=== PATIENT | female | born 1980 | race Caucasian/White ===

== ENCOUNTER → 2017-05-08 | Outpatient (CLI) | payer MEDICARE, OTHER ==
[~2017-05-08] MED LIST: OMEP20CA5 PO; PREG50CA PO
--- NOTE | 2017-05-08 15:27 | RAD ---
3 views right shoulder 05/08/2017 2:00 AM Indication: ENTIRE RIGHT SHOULDER PAIN, TINGLING DOWN ARM, LOSS OF PATTERNATOR. Comparison: None Findings: There is no fracture or dislocation identified. Articular surfaces are uninterrupted. Soft tissues are unremarkable. Impression: No radiographic evidence of acute osseous abnormality
== END | disposition home or self-care (01) ==
LOC: DXRADRC 15:06
PROVIDERS: ATTEND Family Medicine
DX: M25.511 Pain in right shoulder (principal); R20.2 Paresthesia of skin
CPT/HCPCS: 73030

== ENCOUNTER → 2020-11-28 | Outpatient (CLI) | payer MEDICARE, OTHER ==
--- NOTE | 2020-11-28 13:07 | RAD ---
DATE: November 28, 2020 EXAM: DIGITAL SCREEN BILAT W/CAD HISTORY: Screening study. COMPARISON: None. Baseline study. This study was interpreted with the benefit of Computerized Aided Detection (CAD). FINDINGS: Breast Density: HETERO The breast parenchyma is heterogenously dense, which could reduce sensitivity of mammography. Breast parenchyma level C.. Benign-appearing calcifications are seen anteriorly on the right side. There are no dominant suspicious masses, suspicious pleomorphic microcalcifications or evidence of architectural distortion. IMPRESSION: No mammographic indicators for malignancy. BI-RADS CATEGORY: 2 BENIGN FINDING RECOMMENDED FOLLOW-UP: 12M 12 MONTH FOLLOW-UP PQRS compliance statement: Patient information was entered into a reminder system with a target due date November 29, 2021 for the next mammogram. Mammography is a sensitive method for finding small breast cancers, but it does not detect them all and is not a substitute for careful clinical examination. A negative mammogram does not negate a clinically suspicious finding and should not result in delay in biopsying a clinically suspicious abnormality. "Our facility is accredited by the [employer] Mammography Program." The patient's breast density may affect the ability of mammography to detect breast cancer. There are 4 categories of breast density, A, B, C and D. Breast density A means that most of the breast tissue is replaced with adipose tissue and therefore is not dense. Breast density B means that the breast tissue is mildly dense and scattered. Breast density C means that the breast tissue is heterogeneously dense. Breast density D means that the breast tissue is very dense. Breast densities especially C and D may decrease the sensitivity of mammography to detect breast cancer. Therefore, the patient may benefit from 3-D breast mammography (3D breast tomography) as a part of their screening mammogram. Insurance may or may not pay for this additional imaging. The patient's breast density based on today's mammogram is category C.
--- NOTE | 2020-11-28 13:29 | RAD ---
EXAM: DUAL ENERGY X-RAY ABSORPTIOMETRY (DEXA). HISTORY: Osteoporosis screening. FINDINGS: The lowest measured T-score is -1.9 in the right hip, based on a bone mineral density of 0. 71 g/cm^2. Refer to the worksheets for full detail. No comparison examinations are available. IMPRESSION: 1. Low bone mass. Bone mineral density yields a T-score between -1.0 and -2.5. Fracture risk is incre ased. 2. FRAX report: Not calculated. METHODOLOGY: Dual energy x-ray absorptiometry was performed to measure bone mineral density. The foll owing analysis is based on the 2019 Official Positions of the International Society for Clinical Dens itometry: Measurements of the hips and the average of L1-L4 are preferred. When the spine and/or hip cannot be feasibly measured or interpreted, or in the setting of hyperparathyroidism, distal radial bone minera l density may be measured. The lumbar spine T-score is based on the average bone mineral density of L1-L4. In the setting of art ifact or anatomic abnormality, some lumbar levels may be excluded, and the remaining levels used for calculation. A single lumbar level is not used for diagnosis, and if only a single level is available for assessment, another anatomic site will be used to assign a diagnosis. The hip T-score is based on the bone mineral density measurement of the femoral neck or total proxima l femur of either side, whichever is lowest. Bilateral mean values are not used for diagnosis. The forearm T-score is derived from 33% of the distal radius of the nondominant forearm. Electronically signed by: Kathleen Roth MD (11/28/2020 1:26 PM) [facility]
== END ==
LOC: MAMMO 10:40
PROVIDERS: ATTEND Family Medicine
DX: Z12.31 Encounter for screening mammogram for malignant neoplasm of breast (principal); M81.8 Other osteoporosis without current pathological fracture; M89.9 Disorder of bone, unspecified
CPT/HCPCS: 77067; 77080

== ENCOUNTER 2021-08-12 09:51 | Emergency (ER) | payer OTHER ==
[~2021-08-12] VITALS: Ht 160 cm; Wt 42.0 kg
[2021-08-12 09:51] VITALS: BP 100/66
[2021-08-12] MEDS ORDERED: IBUPROFEN 600 MG TABLET. PO ONE ×2 (10:15→10:19)
--- NOTE | 2021-08-12 10:15 | PHYS DOC ---
Past History Alcohol Use: None (BRANDT LARRY APRN) General Adult EDM: Chief Complaint: FATIGUE HPI: HPI: Patient is a 40-year-old female who presents with body aches, chills, fever and fatigue. Patient states that symptoms started 4 days ago. Highest temperature at home was 102. Patient denies taking anything at home to treat symptoms. Denies shortness of breath, chest pain, cough. Patient is not vaccinated for COVID-19. Denies medical history. (BRANDT LARRY APRN) Review of Systems: Review of Systems: ROS At least 10 ROS systems have been reviewed and are negative except as documented in the HPI. General: Negative except as outlined in HPI above. Skin: Negative except as outlined in HPI above. HEENT: Negative except as outlined in HPI above. Neck: Negative except as outlined in HPI above. Respiratory: Negative except as outlined in HPI above.. Cardiovascular: Negative except as outlined in HPI above. Abdomen: Negative except as outlined in HPI above. : Negative except as outlined in HPI above. Back/MSK: Negative except as outlined in HPI above. Neuro: Negative except as outlined in HPI above. Psych: Negative except as outlined in HPI above. (BRANDT LARRY APRN) Allergies: Allergies: Allergies Coded Allergies Type Severity Reaction Last Updated Verified Penicillins Allergy Unknown 06/23/15 Yes (BRANDT LARRY APRN) Physical Exam: PE: Constitutional: Well developed, well nourished, no acute distress, non-toxic appearance. [] HENT: Normocephalic, atraumatic, bilateral external ears normal, oropharynx moist, no oral exudates, nose normal. [] Eyes: PERRLA, EOMI, conjunctiva normal, no discharge. [] Neck: Normal range of motion, no tenderness, supple, no stridor. [] Cardiovascular:Heart rate regular rhythm, no murmur [] Lungs & Thorax: Bilateral breath sounds clear to auscultation [] Abdomen: Bowel sounds normal, soft, no tenderness, no masses, no pulsatile masses. [] Skin: Warm, dry, no erythema, no rash. [] Back: No tenderness, no CVA tenderness. [] Extremities: No tenderness, no cyanosis, no clubbing, ROM intact, no edema. [] Neurologic: Alert and oriented X 3, normal motor function, normal sensory function, no focal deficits noted. [] Psychologic: Affect normal, judgement normal, mood normal. [] (BRANDT LARRY APRN) Current Patient Data: Vital Signs: Vital Signs Date Time Temp Pulse Resp B/P (MAP) Pulse Ox O2 Delivery O2 Flow Rate FiO2 08/12/21 09:51 99.2 103 16 100/66 (77) 100 Room Air (BRANDT LARRY APRN) EKG: EKG: [] (BRANDT LARRY APRN) Radiology/Procedures: Radiology/Procedures: [] (BRANDT LARRY APRN) Heart Score: C/O Chest Pain: No Risk Factors: Risk Factors: DM, Current or recent (<one month) smoker, HTN, HLP, family history of CAD, obesity. Risk Scores: Score 0 - 3: 2.5% MACE over next 6 weeks - Discharge Home Score 4 - 6: 20.3% MACE over next 6 weeks - Admit for Clinical Observation Score 7 - 10: 72.7% MACE over next 6 weeks - Early Invasive Strategies (BRANDT LARRY APRN) Course & Med Decision Making: Course & Med Decision Making Pertinent Labs and Imaging studies reviewed. (See chart for details) [] 40-year-old female presents with body aches, chills and fever for 4 days. Treatment in the ER consisted of rapid COVID and influenza. Patient given 600 mg of Motrin to treat symptoms. Influenza was positive. Discussed results with patient. Advised patient to be taking ibuprofen and Tylenol at home for fever and body aches. Drink plenty of fluids. Discussed quarantining. Discussed return precautions in length. Patient verbalized understanding of discharge instructions. (BRANDT LARRY APRN) Dragon Disclaimer: Dragon Disclaimer: This electronic medical record was generated, in whole or in part, using a voice recognition dictation system. (BRANDT LARRY APRN) Attending Co-Sign The patient was seen and interviewed as well as examined at the bedside. The chart was reviewed. The case was discussed. Agree with the plan of care. (ALEA POWELL DO) Departure Departure: Impression: Primary Impression: Fever Qualified Codes: R50.9 - Fever, unspecified Additional Impression: Fatigue Qualified Codes: R53.83 - Other fatigue Disposition: 01 HOME / SELF CARE / HOMELESS Condition: STABLE Referrals: MANUEL WYNNE MD (PCP) Patient Instructions: Fever, Adult Additional Instructions: You were seen in the emergency room for fever, chills and fatigue. You were tested for COVID and influenza. Influenza was positive. Make sure that you are alternating between ibuprofen and Tylenol at home to treat your fever and body aches. Make sure that you are quarantining to prevent spreading illness. Follow-up with your PCP if symptoms do not improve in 1 to 2 days. Return to the emergency room if you have worsening symptoms such as chest pain, shortness of breath, uncontrolled vomiting. EMERGENCY DEPARTMENT GENERAL DISCHARGE INSTRUCTIONS Thank you for coming to [facility] (ED) today and trusting us with you care. We trust that you had a positivie experience in our Emergency Department. If you wish to speak to the department management, you may call the director at [phone]. YOUR FOLLOW UP INSTRUCTIONS ARE FOLLOWS: 1. Do you have a private Doctor? If you do not have a private doctor, please ask for a resource list of physicians or clinics that may be able to assist you with follow up care. 2. The Emergency Physician has interpreted your x-rays. The X-Ray specialist will also review them. If there is a change in the findings, you will be notified in 48 hours when at all possible. 3. A lab test or culture has been done, your results will be reviewed and you will be notified if you need a change in treatment. ADDITIONAL INSTRUCTIONS AND INFORMATION: 1. Your care today has been supervised by a physician who is specially trained in emergency care. Many problems require more than one evaluation for a complete diagnosis and treatment. We recommend that you schedule your follow up appointment as recommended to ensure complete treatment of you illness or injury. If you are unable to obtain follow up care and continue to have a problem, or if your condition worsens, we recommend that you return to the ED. 2. We are not able to safely determine your condition over the phone nor are we able to give sound medical advice over the phone. For these safety reasons, if you call for medical advice we will ask you to come to the ED for further evaluation. 3. If you have any questions regarding these discharge instructions please call the ED at [phone]. SAFETY INFORMATION: In the interest of safety, wellness, and injury prevention; we encourage you to wear your sealbelt, if you smoke; quite smoking, and we encourage family to use a protective helmet for bicycling and other sporting events that present an increased risk for head injury. IF YOUR SYMPTOMS WORSEN OR NEW SYMPTOMS DEVELOP, OR YOU HAVE CONCERNS ABOUT YOUR CONDITION; OR IF YOUR CONDITION WORSENS WHILE YOU ARE WAITING FOR YOUR FOLLOW UP APPOINTMENT; EITHER CONTACT YOUR PRIMARY CARE DOCTOR, THE PHYSICIAN WHOSE NAME AND NUMBER YOU WERE GIVEN, OR RETURN TO THE ED IMMEDIATELY. BRANDT LARRY APRN Aug 12, 2021 10:15 ALEA POWELL DO Aug 13, 2021 06:24
[2021-08-12 10:47] LABS: INFLUENZA B PATIENT NEGATIVE (NEGATIVE)
[2021-08-12 10:52] LABS: INFLUENZA A PATIENT POSITIVE (NEGATIVE)
== END 2021-08-12 11:15 | disposition home or self-care (01) ==
LOC: ER 09:51
DX: R50.9 Fever, unspecified (principal); R53.83 Other fatigue; Z20.822 Contact with and (suspected) exposure to COVID-19; Z88.0 Allergy status to penicillin
CPT/HCPCS: 87428; 99283-25

== ENCOUNTER 2021-09-22 14:09 | Emergency (ER) | payer OTHER ==
[~2021-09-22] VITALS: Ht 160 cm; Wt 42.0 kg
[2021-09-22] MEDS ORDERED: NALOXONE 2 MG/2 ML DISP.SYRIN. ONE (14:24)
[2021-09-22] MEDS ORDERED: NALOXONE 2 MG/2 ML DISP.SYRIN. IV ONE (14:30)
--- NOTE | 2021-09-22 14:33 | EKG ---
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
[2021-09-22] MEDS ORDERED: IV NORMAL SALINE 1,000ML 1,000 ML IV ONE (14:45)
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
[2021-09-22 14:51] VITALS: BP 115/46
[2021-09-22 14:54] LABS: BASO # 0.2 x10^3/uL (0.0-0.2); BASO % 1 % (0-3); EOS % 0 % (0-3); HEMATOCRIT 39.5 % (36.0-47.0); LYMPH # 1.9 x10^3/uL (1.0-4.8); LYMPH % 13 % (24-48); MEAN CORPUSCULAR HEMOGLOBIN 31 pg (25-35); MEAN CORPUSCULAR HGB CONC 33 g/dL (31-37); MEAN CORPUSCULAR VOLUME 93 fL (79-100); MONO # 1.1 x10^3/uL (0.0-1.1); MONO % 7 % (0-9); NEUT # 11.8 x10^3uL (1.8-7.7); NEUT % 79 % (31-73); PLATELET COUNT 289 x10^3/uL (140-400); RED BLOOD COUNT 4.24 x10^6/uL (3.50-5.40); RED CELL DISTRIBUTION WIDTH 13.9 % (11.5-14.5)
--- NOTE | 2021-09-22 15:00 | RAD ---
CT HEAD/BRAIN WO Date: 09/22/2021 2:34 PM Clinical Indication: AMS Comparison: None. Technique: 5 mm axial tomographic images were obtained of the head without contrast. These were view ed on brain and bone windows. One or more of the following dose reduction techniques were utilized: A utomated exposure control (AEC), Adjustment of mA and/or kV according to patient size, Use of iterati ve reconstruction technique such as ASiR, CT scan done according to ALARA and image gently/image ramos ly Findings: The brain parenchyma is normal in attenuation. No intra- or extra-axial mass or fluid collection. No acute hemorrhage. The ventricles are normal in size, shape, and morphology. The batres-white matter eduard ction is normal. The subarachnoid cisterns are patent. The visualized paranasal sinuses are normal. The visualized portions of the orbits and globes are no rmal. The mastoid air cells are clear. The football scout topogram shows no lytic lesion or fracture. Impression: No acute intracranial process. Electronically signed by: Richie Mckeon MD (09/22/2021 2:58 PM) [facility]
[2021-09-22 15:10] LABS: ALBUMIN 3.7 g/dL (3.4-5.0); ALBUMIN/GLOBULIN RATIO 1.2 (1.0-1.7); CALCIUM 8.9 mg/dL (8.5-10.1); GFR 61.1; TOTAL BILIRUBIN 0.5 mg/dL (0.2-1.0); TOTAL PROTEIN 6.8 g/dL (6.4-8.2)
--- NOTE | 2021-09-22 15:13 | RAD ---
EXAMINATION: Chest radiograph. VIEWS: Single AP view of the chest COMPARISON: 06/13/2015 INDICATION:41 years, Female, altered mental status. FINDINGS: Normal cardiomediastinal silhouette. Left basilar scarring and/or atelectasis. No focal consolidation . No pleural effusion or pneumothorax. No acute osseous process. IMPRESSION: No confluent infiltrate. Electronically signed by: Roe Garcia DO (09/22/2021 3:11 PM) [facility]
[2021-09-22 15:18] LABS: POTASSIUM 6.2 mmol/L (3.5-5.1)
== END 2021-09-22 15:15 | disposition left against medical advice (07) ==
LOC: ER 14:09
DX: R41.82 Altered mental status, unspecified (principal); R47.81 Slurred speech; Z88.0 Allergy status to penicillin
CPT/HCPCS: 36415; 70450; 71045; 80053; 84484; 85025; 93005; 96374; 99285; J2310; J7030

== ENCOUNTER → 2021-12-05 | Outpatient (CLI) | payer MEDICARE, OTHER ==
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
== END ==
LOC: RAD 10:29
PROVIDERS: ATTEND Nurse Practitioner Family
DX: S49.92XA Unspecified injury of left shoulder and upper arm, initial encounter (principal); R06.02 Shortness of breath; W19.XXXA Unspecified fall, initial encounter; Y93.89 Activity, other specified; Y92.89 Other specified places as the place of occurrence of the external cause; Y99.8 Other external cause status
CPT/HCPCS: 71046; 71100; 73000-50